=== PATIENT | female | born 1965 | race Caucasian/White ===

== ENCOUNTER 2018-06-30 09:00 | Day surgery (SDC) | payer MEDICAID ==
[~2018-06-30] VITALS: Ht 162.6 cm; Wt 57.6 kg
[2018-06-30] MEDS ORDERED: normal saline 1000ml 1,000 ML IV PRN (09:25)
[2018-06-30 09:37] VITALS: BP 115/53
[2018-06-30] MEDS ORDERED: NO HOME MEDS (09:43)
[2018-06-30] MEDS ORDERED: OXAZEpam 15mg capsule PO ONE (10:00)
[2018-06-30] MEDS ORDERED: heparin sodium, porcine/PF 100unit/ml 5ML syringe ONE (12:49)
[2018-06-30] MEDS ORDERED: LIDOcaine 1%/PF 5ML 10 MG/ML VIAL ONE (12:50)
[2018-06-30] MEDS ORDERED: midazolam 2 mg/2 ml injection ONE (12:50)
[2018-06-30] MEDS ORDERED: fentaNYL/PF 50MCG/1 ML 2ML syringe ONE (12:50)
[2018-06-30] MEDS ORDERED: HYDROcodone/acetaminophen 5mg/325mg tablet PO PRN ×2 (14:05)
[2018-06-30 14:10] VITALS: BP 127/66
[2018-06-30 14:25] VITALS: BP 117/72
[2018-06-30 14:40] VITALS: BP 110/66
[2018-06-30 14:55] VITALS: BP 115/79
[2018-06-30 15:10] VITALS: BP 112/82
== END 2018-06-30 15:15 | disposition home or self-care (01) ==
LOC: SSTAY O 09:00
PROVIDERS: ATTEND Radiology Vascular & Interventional Radiology
DX: C50.911 Malignant neoplasm of unspecified site of right female breast (principal); C77.3 Secondary and unspecified malignant neoplasm of axilla and upper limb lymph nodes; F41.9 Anxiety disorder, unspecified; G43.909 Migraine, unspecified, not intractable, without status migrainosus; I10 Essential (primary) hypertension; Z72.89 Other problems related to lifestyle
CPT/HCPCS: 36561; 76937; 77001; 99152; 99153; C1788; C1894; J1642; J2001; J2250; J3010; J7030; A6219